=== PATIENT | female | born 1995 | race African-American/Black ===

== ENCOUNTER 2024-07-09 09:08 | Outpatient (CLI) | payer OTHER | END 2024-07-09 09:12 | disposition home or self-care (01) | LOC: SONOGRAMA 09:08 | DX: Z34.91 Encounter for supervision of normal pregnancy, unspecified, first trimester (principal) ==

== ENCOUNTER 2024-07-09 09:48 | Outpatient (CLI) | payer OTHER ==
[2024-07-09 10:52] LABS: HEMATOCRIT 35.3 % (36.0-45.00); HEMOGLOBIN 12.2 g/dL (12.0-15.00); MEAN CELL VOLUME 81.9 fL (80.00-100.00); MEAN CORPUSCULAR HEMOGLOBIN 28.4 pg (27.00-32.0); MEAN CORPUSCULAR HGB CONC 34.6 g/dl (32.0-36.0); PLATELET COUNT 264 K/uL (150-450); RED BLOOD COUNT 4.31 M/uL (4.00-6.00); RED CELL DISTRIBUTION WIDTH 14.5 % (11.5-14.5)
[2024-07-09 11:13] LABS: PH,URINE 8.5 (5.0-8.0); URINE APPEARANCE Turbid; URINE BACTERIA 36.7 uL (0.0-1933); URINE BILIRRUBIN Negative (NEGATIVE); URINE BLOOD Negative; URINE COLOR Yellow; URINE EPITHELIAL CELLS 12.6 uL (0.0-38.8); URINE GLUCOSE Negative (NEGATIVE); URINE KETONE Negative (NEGATIVE); URINE LEUKOCYTE Negative; URINE NITRATE Negative; URINE PROTEIN Negative (NEGATIVE); URINE WBC 2.2 uL (0.0-23.2)
[2024-07-09 11:20] LABS: ALBUMIN 3.6 gm/dL (3.4-5.0); BILIRUBIN TOTAL 0.65 mg/dL (0.3-1.2); CALCIUM 9.3 mg/dL (8.5-10.1); CREATININE SERUM 0.64 mg/dL (0.55-1.02); GFR 109.71; GLOBULINA 3.7 G/DL (2.4-3.5); POTASSIUM 4.42 mEq/L (3.5-5.1); TOTAL PROTEIN 7.3 gm/dL (6.4-8.2); TSH 0.549 uIU/mL (0.358-3.74)
[2024-07-09 11:55] LABS: RH POSITIVE
[2024-07-11 09:01] LABS: RAPID PLASMA REAGIN NONREACTIVE BY RPR (NONREACTIVE)
== END 2024-07-09 23:00 | disposition home or self-care (01) ==
LOC: LAB 09:48
DX: Z00.00 Encounter for general adult medical examination without abnormal findings (principal)